=== PATIENT | male | born 1940 | race Hispanic/Latino ===

== ENCOUNTER → 2020-05-27 | Outpatient (CLI) | payer OTHER ==
[~2020-05-27] MED LIST: AMLO-258 PO; ASPI-1197 PO; BENA40TA9 PO; ESOM20CA34 PO; FISH12002 PO; FOLI-74 PO; LEVO100T12 PO; METF-444 PO; NITR1PAT6 TD; PRAV20TA4 PO; SITA100T12 PO
== END | disposition home or self-care (01) ==
LOC: SHCH 13:36
PROVIDERS: ATTEND Internal Medicine Cardiovascular Disease
DX: R60.9 Edema, unspecified (principal)
CPT/HCPCS: 93970

== ENCOUNTER → 2020-10-06 | Outpatient (CLI) | payer OTHER ==
[~2020-10-06] MED LIST changes: +IOHEXOL 350 MG/ML 100ML INFUS..BTL IV ONE
== END | disposition home or self-care (01) ==
LOC: RAH 09:27
PROVIDERS: ATTEND Internal Medicine Cardiovascular Disease
DX: I71.4 Abdominal aortic aneurysm, without rupture (principal); K80.20 Calculus of gallbladder without cholecystitis without obstruction; N28.1 Cyst of kidney, acquired; K57.30 Diverticulosis of large intestine without perforation or abscess without bleeding; N32.89 Other specified disorders of bladder; M41.80 Other forms of scoliosis, site unspecified
CPT/HCPCS: 74174; Q9967

== ENCOUNTER → 2022-08-31 | Outpatient (CLI) | payer MEDICARE, OTHER ==
[~2022-08-31] MED LIST changes: -BENA40TA9 PO; +BENA40TA92 PO
== END | disposition home or self-care (01) ==
LOC: CANPRECLI → RAH 09:00
PROVIDERS: ATTEND Internal Medicine Cardiovascular Disease
DX: I71.40 Abdominal aortic aneurysm, without rupture, unspecified (principal); K80.20 Calculus of gallbladder without cholecystitis without obstruction
CPT/HCPCS: 74174; Q9967